=== PATIENT | female | born 2000 | race Caucasian/White ===

== ENCOUNTER 2018-07-01 19:31 | Emergency (ER) | payer BC ==
[2018-07-01 19:55] VITALS: BP 138/80
--- NOTE | 2018-07-01 20:04 | UC ---
Throat Pain/Nasal Cy HPI - HPI Summary HPI Summary: 18-year-old woman comes in with a chief complaint of 4 days of upper respiratory tract infection symptoms. This been having rhinorrhea. Had some loose cough. Last evening she started feeling more ill with chills and body aches. Today is found to have a fever of 102. She took ibuprofen which did help with the fever. No shortness of breath no wheezing. - History of Current Complaint Chief Complaint: UCRespiratory Stated Complaint: CONGESTION,ACHEY,FEVER Time Seen by Provider: 07/01/18 19:48 Hx Last Menstrual Period: 06/20/18 Pain Intensity: 3 - Allergies/Home Medications Allergies/Adverse Reactions: Allergies Allergy/AdvReac Type Severity Reaction Status Date / Time No Known Allergies Allergy Verified 07/01/18 19:50 Home Medications: Home Medications Spironolactone TAB* [Aldactone TAB 25 MG*] 1 tab QPM 07/01/18 [History Confirmed 07/01/18] l-Norgest/E.estradiol-E.estrad [Camrese Lo Tablet] 1 tab QPM 07/01/18 [History Confirmed 07/01/18] PMH/Surg Hx/FS Hx/Imm Hx Previously Healthy: Yes - Surgical History Surgical History: Yes Surgery Procedure, Year, and Place: TONSILS - Family History Known Family History: Positive: Non-Contributory - Social History Alcohol Use: None Substance Use Type: None Smoking Status (MU): Never Smoked Tobacco Review of Systems All Other Systems Reviewed And Are Negative: Yes Constitutional: Positive: Fever, Chills Skin: Positive: Negative Eyes: Positive: Negative ENT: Positive: Sore Throat, Nasal Discharge, Sinus Congestion Respiratory: Positive: Cough Cardiovascular: Positive: Negative Gastrointestinal: Positive: Negative Motor: Positive: Negative Neurovascular: Positive: Negative Musculoskeletal: Positive: Myalgia Neurological: Positive: Negative Psychological: Positive: Negative Is Patient Immunocompromised?: No Physical Exam Triage Information Reviewed: Yes Appearance: No Pain Distress, Well-Nourished, Ill-Appearing - MILD Vital Signs: Initial Vital Signs Temp 98.6 F 07/01/18 19:52 Pulse 110 07/01/18 19:52 Resp 16 07/01/18 19:52 BP 138/80 07/01/18 19:52 Pulse Ox 98 07/01/18 19:52 Vital Signs Reviewed: Yes Eye Exam: Normal Eyes: Positive: Conjunctiva Clear ENT: Positive: Pharyngeal erythema, Nasal congestion, Nasal drainage, TMs normal Neck: Positive: Supple Respiratory: Positive: Lungs clear, Normal breath sounds, No respiratory distress Cardiovascular: Positive: Tachycardia Bowel Sounds: Positive: Present Musculoskeletal: Positive: Strength Intact, ROM Intact Neurological: Positive: Alert Psychological: Positive: Age Appropriate Behavior Skin Exam: Normal Throat Pain/Nasal Course/Dx - Course Course Of Treatment: DISCUSSED VIRAL VERSES BACTERIAL INFECTION AND THE ROLE OF ANTIBIOTICS. THE PATIENT WISHES TO BE ON ANTIBIOTICS AT THIS TIME. - Differential Dx/Diagnosis Provider Diagnosis: Upper respiratory infection Discharge - Sign-Out/Discharge Documenting (check all that apply): Patient Departure All imaging exams completed and their final reports reviewed: No Studies - Discharge Plan Condition: Stable Disposition: HOME Prescriptions: Amoxicillin PO (*) [Amoxicillin 875 MG (*)] 875 mg PO BID #20 tab Patient Education Materials: Upper Respiratory Infection (ED) Forms: *School Release Referrals: [facility] [Outside] Additional Instructions: FOLLOW UP WITH YOUR DOCTOR IF NOT COMPLETELY IMPROVED. GET REEVALUATED SOONER FOR WORSENING OF YOUR CONDITION OR QUESTIONS OR CONCERNS. - Billing Disposition and Condition Condition: STABLE Disposition: Home
== END 2018-07-01 20:13 | disposition home or self-care (01) ==
LOC: UCCORT 19:31
DX: J06.9 Acute upper respiratory infection, unspecified (principal)
CPT/HCPCS: 99202; G0463

== ENCOUNTER 2019-05-25 21:11 | Emergency (ER) | payer BC ==
[2019-05-25 21:24] VITALS: BP 143/93
[2019-05-25] MEDS ORDERED: Ondansetron ODT TAB* 4 MG PO ONE (21:24)
--- NOTE | 2019-05-25 21:27 | UC ---
Head Injury HPI - HPI Summary HPI Summary: head injury, broom ball tonight, collided with another player, and fell on ice and hit head. Denies any LOC, headache, and slight nausea, history of concussions. - History Of Current Complaint Chief Complaint: UCHeadInjury Stated Complaint: HEAD INJURY Time Seen by Provider: 05/25/19 21:18 Hx Obtained From: Patient Hx Last Menstrual Period: 05/21/19 ?: No Onset/Duration: Sudden Onset, Lasting Hours Severity Currently: Moderate Severity Initially: Moderate Pain Intensity: 5 Associated Signs And Symptoms: Positive: Nausea - Allergies/Home Medications Allergies/Adverse Reactions: Allergies Allergy/AdvReac Type Severity Reaction Status Date / Time No Known Allergies Allergy Verified 05/25/19 21:24 Home Medications: Home Medications l-Norgest/E.estradiol-E.estrad [Camrese Lo Tablet] 1 tab QPM 07/01/18 [History Confirmed 05/25/19] PMH/Surg Hx/FS Hx/Imm Hx Previously Healthy: Yes - Surgical History Surgical History: Yes Surgery Procedure, Year, and Place: TONSILS - Family History Known Family History: Positive: Non-Contributory Negative: Hypertension - Social History Alcohol Use: None Substance Use Type: None Smoking Status (MU): Never Smoked Tobacco Review of Systems All Other Systems Reviewed And Are Negative: Yes Gastrointestinal: Positive: Nausea Neurological/Mental Status: Positive: Headache Is Patient Immunocompromised?: No Physical Exam Triage Information Reviewed: Yes Appearance: Well-Appearing, Well-Nourished, Pain Distress Vital Signs: Initial Vital Signs Temp 99.0 F 05/25/19 21:18 Pulse 109 05/25/19 21:18 Resp 16 05/25/19 21:18 BP 143/93 05/25/19 21:18 Pulse Ox 98 05/25/19 21:18 Vital Signs Reviewed: Yes Eye Exam: Normal ENT Exam: Normal Dental Exam: Normal Neck exam: Normal Respiratory Exam: Normal Cardiovascular Exam: Normal Abdominal Exam: Normal Bowel Sounds: Positive: Present Musculoskeletal Exam: Normal Neurological Exam: Normal Neurological: Positive: Other: - PERRLA, neg rhomberg Psychological Exam: Normal Skin Exam: Normal Head Injury Course/Dx - Course Course Of Treatment: hx obtained, exam performed ,meds reviewed, zofran given for nausea, basic neuro exam was negative. reviewed concussion procautions. - Differential Dx/Diagnosis Differential Diagnosis/HQI/PQRI: Concussion Without LOC Provider Diagnosis: Concussion Discharge ED - Sign-Out/Discharge Documenting (check all that apply): Patient Departure All imaging exams completed and their final reports reviewed: No Studies - Discharge Plan Condition: Stable Disposition: HOME Patient Education Materials: Concussion (ED) Forms: *School Release Referrals: No Primary Care Phys,NOPCP [Primary Care Provider] - Additional Instructions: 1. take 400 mg of ibuprofen as needed for headache. 2. Minimize screen time, tv time, loud music, no alcohol, if headache persists in the morning I am giving you a note for classes. 3. If you develop worsening headache, nausea, or vision changes follow up with medical provider. - Billing Disposition and Condition Condition: STABLE Disposition: Home
== END 2019-05-25 21:28 | disposition home or self-care (01) ==
LOC: UCCORT 21:11
DX: S06.0X0A Concussion without loss of consciousness, initial encounter (principal); W00.2XXA Other fall from one level to another due to ice and snow, initial encounter; Y92.9 Unspecified place or not applicable; R11.0 Nausea
CPT/HCPCS: 99212; A9270-GY; G0463